=== PATIENT | female | born 1955 | race Caucasian/White ===

== ENCOUNTER 2024-05-31 11:59 | Outpatient (CLI) | payer MEDICARE, OTHER, SELFPAY ==
--- NOTE | 2024-05-31 12:04 | CT_ITS ---
APPROVED REPORT Manager Mission: CLINICAL INDICATION Chest Pain TECHNIQUE Image Acquisition: A 128 slice MDCT scanner ([email or web address]) was used for data acquisition. A noncontrast coronary calcium scan was performed. A CT attenuation threshold of 130 Hounsfield units (HU) was used for the detection of calcium in contiguous voxels of 1 sq mm in area to be counted as individual lesions. Bolus tracking in the ascending aorta with a threshold of 180 HU was performed. Immediately afterwards, ECG synchronized cardiac CT was then performed from the cardiac base to apex using retrospective gating with ECG tube current modulation. A total of 85 mL of Isovue 370 mg/mL contrast medium was administered at 5 mL/sec followed by a saline flush using a biphasic injection protocol. A tube voltage of 120 KVp was used. The patient received the following medications prior to the cardiac CT. 5 mg of intravenous metoprolol 0.8 mg of sublingual nitroglycerin The average heart rate at the time of acquisition was 54 bpm and regular. Image Reconstruction Transaxial images were reconstructed at 0.67 mm slide thickness. Data was reviewed interactively on an advanced workstation capable of 2 and 3-dimensional displays in all conventional reconstruction formats, including multiplanar reformations, maximum intensity projections, curved multiplanar reformations, and volume rendered reconstructions. When applicable, selected routine images describing the relevant coronary anatomy and pathology were saved and sent to PACS. Complications None Technical Quality Overall image quality was nondiagnostic due to prior history of coronary stenting. Coronary artery opacification was suboptimal. Total DLP (Dose-Length Product) is 1734.3 mGy-cm. The reported value represents the total of one or more individual components during the CT acquisition of this date and at this time, and as such, the same value may appear in more than one CT report depending on the interpreting/reporting physicians. COMPARISON None FINDINGS CT Coronary Calcium Scoring - cannot be performed due to history of prior coronary stenting. There is identifiable calcification in the mitral annulus and the ascending and descending thoracic aorta. Coronary CT Angiography The coronary arterial system is right dominant. Quantitative Stenosis Grading: Left Main (LM): The left main originates normally from the left sinus of Valsalva. The LM bifurcates into the left anterior descending artery and left circumflex artery. There is calcified plaque in the proximal LM segment with < 25% luminal stenosis. Left Anterior Descending (LAD) and Diagonal Branches: The LAD gives off 2 diagonal branch(es). There is likely a stent in the proximal LAD segment. The stent is small sized, further evaluation within the stent cannot be performed. There is mixed calcified/noncalcified plaque distal to the stent with up to 50-70% luminal stenosis. Left Circumflex (LCX) and Obtuse Marginals (OM): The LCX gives off 2 Obtuse Marginal (OM) branch(es). There are stents in the LCx and OM segments. Overall, the stents grossly appear patent, but adequate evaluation within the stent cannot be performed. Right Coronary Artery (RCA): The RCA originates normally from the right sinus of Valsalva. The RCA gives off a posterior descending artery (PDA) and posterolateral (PL) branches. There is a stent in the proximal RCA segment. The stent is small sized, further evaluation within the stent cannot be performed. Distal to the stent there are multiple foci of calcified/noncalcified plaque with up to 30-50% luminal stenosis. Non-Coronary Cardiac Findings: Analysis of the left ventricular (LV) structure and function was performed after 3-D
[2024-05-31 12:32] LABS: Blood Urea Nitrogen 15 mg/dl (7-17); Estimated Glomerular Filt Rate 72 ml/min (>60); GFR (African American) 87 ML/MIN (>60)
[2024-05-31 13:48] VITALS: BP 127/71; PULSE 62; RESP 18; TEMP 36.3; O2SAT 98; BMI 30.6
[2024-05-31 13:58] LABS: POC Glucose,Bedside 199 (70-110)
[2024-05-31 14:20] VITALS: BP 143/82; PULSE 65; RESP 18; O2SAT 98
[2024-05-31 14:23] VITALS: BP 117/65; PULSE 64; RESP 16; O2SAT 97
[2024-05-31 14:26] VITALS: BP 114/54; PULSE 64; RESP 16; O2SAT 98
[2024-05-31 14:29] VITALS: BP 138/70; PULSE 53; RESP 16; O2SAT 98
[2024-05-31 14:44] VITALS: BP 114/66; PULSE 65; RESP 18; O2SAT 98
== END 2024-05-31 14:50 | disposition home or self-care (01) ==
PROVIDERS: PCP Registered Nurse; Visit Provider Registered Nurse
DX: I20.9 Angina pectoris, unspecified (principal)
CPT/HCPCS: 36415; 75574; 82565; 82962; 84520; Q9967